=== PATIENT | male | born 1995 | race Asian ===

== ENCOUNTER 2019-06-03 15:31 | Emergency (ER) | payer OTHER ==
--- NOTE | 2019-06-03 16:27 | ED ---
Back Pain - HPI Summary HPI Summary: Pt is a 24 y/o M presenting to the ED brought in by EMS for back pain. He states he slipped while walking in the rain and injured his back. He denies head injury, LOC, numbness, or tingling. He notes lumbar back pain. The pt states he does not think he broke his back, he denies pain medication, and would like to be sent home. - History of Current Complaint Chief Complaint: EDBackInjuryPain Stated Complaint: INJURY FROM FALL PER EMS Time Seen by Provider: 06/03/19 16:02 Hx Obtained From: Patient Onset/Duration: Sudden Onset, Lasting Hours, Still Present Onset/Duration: Started Hours Ago, Still Present Timing: Constant, Lasting Hours Back Pain Location: Is Discrete @ - lower back Severity Initially: Moderate Severity Currently: Moderate Pain Intensity: 5 Pain Scale Used: 0-10 Numeric Aggravating Symptom(s): Nothing Alleviating Symptom(s): Nothing Associated Signs And Symptoms: Negative: Numbness, Tingling PMH/Surg Hx/FS Hx/Imm Hx Previously Healthy: Yes Endocrine/Hematology History: Denies: Hx Diabetes Cardiovascular History: Denies: Hx Hypertension Infectious Disease History: No Infectious Disease History: Denies: Traveled Outside the [place] in Last 30 Days - Family History Known Family History: Negative: Diabetes - Social History Alcohol Use: None Hx Substance Use: No Substance Use Type: Reports: None Hx Tobacco Use: No Smoking Status (MU): Never Smoked Tobacco Review of Systems Positive: Myalgia - back pain Neurological: Negative - head injury Negative: Paresthesia, Numbness, Syncope All Other Systems Reviewed And Are Negative: Yes Physical Exam - Summary Physical Exam Summary: Constitutional: Well-developed, Well-nourished, Alert. (-) Distressed Skin: Warm, Dry HENT: Normocephalic; Atraumatic Eyes: Conjunctiva normal Neck: Musculoskeletal ROM normal neck. (-) JVD, (-) Stridor, (-) Tracheal deviation Cardio: Rhythm regular, rate normal, Heart sounds normal; Intact distal pulses; Radial pulses are 2+ and symmetric. (-) Murmur Pulmonary/Chest wall: Effort normal. (-) Respiratory distress, (-) Wheezes, (-) Rales Abd: Soft, (-) tenderness, (-) Distension, (-) Guarding, (-) Rebound Musculoskeletal: (-) Edema. No midline spine tenderness. Lymph: (-) Cervical adenopathy Neuro: Alert, Oriented x3 Psych: Mood and affect Normal Triage Information Reviewed: Yes Vital Signs On Initial Exam: Initial Vitals Temp Pulse Resp BP Pulse Ox 97.1 F 82 16 136/94 98 06/03/19 15:35 06/03/19 15:35 06/03/19 15:35 06/03/19 15:35 06/03/19 15:35 Vital Signs Reviewed: Yes Procedures - Sedation Patient Received Moderate/Deep Sedation with Procedure: No Diagnostics - Vital Signs Vital Signs Temp Pulse Resp BP Pulse Ox 06/03/19 15:35 97.1 F 82 16 136/94 98 - Laboratory Lab Statement: Any lab studies that have been ordered have been reviewed, and results considered in the medical decision making process. Back Pain Course/Dx - Course Course Of Treatment: Patient is here with traumatic lower back pain. Patient had no bony tenderness on exam and is overall well-appearing. Patient does not think he fractured his back. Patient did not need an x-ray. Patient was given Motrin Tylenol for pain. - Diagnoses Provider Diagnoses: Contusion of coccyx Discharge ED - Sign-Out/Discharge Documenting (check all that apply): Patient Departure - Discharge Plan Condition: Stable Disposition: HOME Patient Education Materials: Contusion in Adults (ED) Forms: *School Release Referrals: [facility] [Outside] Additional Instructions: Follow up with your primary care provider within 1-3 days. Come back to the emergency department with any new or worsening symptoms. - Billing Disposition and Condition Condition: STABLE Disposition: Home - Attestation Statements Document Initiated by Scribe: Yes Documenting Scribe: Kimberly Lopez Provider For Whom Joeibe is Documenting (Include Credential): Kodi Santiago MD. Scribe Attestation: Kimberly Simmons scribed for Kodi Santiago MD. on 06/03/19 at 2142. Scribe Documentation Reviewed: Yes Provider Attestation: The documentation as recorded by the scribeKimberly accurately reflects the service I personally performed and the decisions made by me, Kodi Santiago MD. Status of Scribe Document: Viewed
[2019-06-03] MEDS ORDERED: Ibuprofen TAB* 600 MG PO ONE (17:00)
[2019-06-03] MEDS ORDERED: Acetaminophen TAB* 325 MG PO ONE (17:00)
[2019-06-03 17:19] VITALS: BP 124/87
== END 2019-06-03 17:15 | disposition home or self-care (01) ==
LOC: ED 15:31
DX: S30.0XXA Contusion of lower back and pelvis, initial encounter (principal); M54.9 Dorsalgia, unspecified; W01.0XXA Fall on same level from slipping, tripping and stumbling without subsequent striking against object, initial encounter; Y92.9 Unspecified place or not applicable
CPT/HCPCS: 99282; A9270-GY